=== PATIENT | female | born 1940 | race Caucasian/White ===

== ENCOUNTER 2020-12-06 14:22 | Emergency (ER) | payer MEDICARE, OTHER, SELFPAY ==
[2020-12-06 14:30] VITALS: BP 175/72; PULSE 68; RESP 12; TEMP 35.9; O2SAT 100; BMI 20.9
--- NOTE | 2020-12-06 15:15 | DI.RAD.S_ITS ---
PROCEDURE: XR LUMBAR SPINE 2-3V INDICATIONS: fall with LBP TECHNIQUE: 3 views of the lumbar spine were acquired. COMPARISON: None. FINDINGS: Bones: 5 nonrib-bearing, lumbar type vertebral bodies are seen. There is 50-60% loss of height anteriorly at the L1 level. No definite, acute features are seen. At the L5-S1 level, there is moderate to severe disc space narrowing seen. Vacuum disc phenomenon is seen at this level. The disc heights otherwise appear well-preserved. Lower lumbar spine facet arthropathy is seen. Soft tissues: Overlying bowel gas pattern is normal. No suspicious soft tissue calcifications. Atherosclerotic calcification is noted. IMPRESSION: Chronic appearing L1 anterior wedge deformity, without acute features. If there is point tenderness (or other clinical suspicion for a fracture not seen on these images) then a dedicated CT could be considered for further evaluation, if clinically appropriate. Focal L5-S1 degenerative change. Dictated by: Michael Quintana M.D. on 12/06/2020 at 15:11 Approved by: Michael Quintana M.D. on 12/06/2020 at 15:12
--- NOTE | 2020-12-06 16:50 | ED.FALL ---
HPI - Fall General Chief Complaint: Fall Stated Complaint: GLF LAST NIGHT, POSSIBLY SLEPTWALK Time Seen by Provider: 12/06/20 16:38 Source: patient Mode of arrival: Family Vehicle Limitations: no limitations History of Present Illness HPI Narrative: Patient is an 80-year-old female. Not on anticoagulation who is here for low back pain. States that last evening she got up out of bed to go use the restroom. She stated that she was unsteady and bounced off the wall and then off the door frame and then fell into a bamboo screen. She did hit the ground. She did not hit her head. There was no loss of consciousness. She stated that the screen landed on top of her. Her got up out of bed to come and check on her and he tripped and fell landed on top of her as well. The only injuries from the event that she describes her low back pain. After the [place] She had some difficulty walking afterwards and then when she woke up this morning and throughout today had continued low back pain. No urinary symptoms. No radiation to her lower extremities. Took some Tylenol prior to arrival. Related Data Home Medications Medication Instructions Recorded Confirmed estradiol [Estring] 0.0075 mg VAGINAL #0 04/10/13 tretinoin [Retin-A] #0 04/10/13 aspirin 81 mg PO QDAY #0 05/10/13 cholecalciferol (vitamin D3) 800 PO #0 05/10/13 [Vitamin D3] guaifenesin [Mucinex] 600 mg PO Q12H #0 08/04/16 Previous Rx's Medication Instructions Recorded tramadol 50 mg PO TID PRN #10 tab 12/06/20 Allergies Allergy/AdvReac Type Severity Reaction Status Date / Time fluticasone Allergy Severe Hives Verified 12/06/20 16:59 [From Advair Diskus] montelukast Allergy Severe Unconscious Verified 12/06/20 16:59 salmeterol Allergy Severe Hives Verified 12/06/20 16:59 [From Advair Diskus] azelastine [From ASTEPRO] Allergy Mild INTENSE Verified 12/06/20 16:59 SNEEZING clarithromycin Allergy Mild NAUSEA, Verified 12/06/20 16:59 [CLARITHROMYCIN] OTHER WORLDLY clindamycin [CLINDAMYCIN] Allergy Mild NAUSEA Verified 12/06/20 16:59 codeine [CODEINE] Allergy Mild N/V Verified 12/06/20 16:59 tetracycline [TETRACYCLINE] Allergy Mild NAUSEA Verified 12/06/20 16:59 cetirizine [From ZYRTEC] Allergy Unknown Verified 12/06/20 16:59 ibuprofen [IBUPROFEN] Allergy Unknown Verified 12/06/20 16:59 Ipratropium Analogues Allergy Unknown Verified 12/06/20 16:59 [IPRATROPIUM ANALOGUES] levofloxacin [From LEVAQUIN] Allergy Unknown Verified 12/06/20 16:59 Quinolones [QUINOLONES] Allergy Unknown WHITE Verified 12/06/20 16:59 PATCHES THROAT & TIGHTNESS Review of Systems Constitutional Constitutional: Denies fatigue, Denies fever(s) and Denies headache(s) ENT Ears, Nose, Mouth, and Throat: Denies headache(s) Cardiovascular Cardiovascular: Denies chest pain and Denies dyspnea Respiratory Respiratory: Denies dyspnea Gastrointestinal Gastrointestinal: Denies abdominal pain Genitourinary Genitourinary: Denies dysuria Genitourinary: Denies dysuria Musculoskeletal Musculoskeletal: Reports back pain, Denies numbness, Denies radiating pain into limb and Denies stiffness Integumentary/Breasts Skin/Breast: Denies lesions and Denies rash Neurologic Neurologic: Denies behavioral changes, Denies headache(s) and Denies numbness Psychiatric Psychiatric: Denies behavioral changes Endocrine Endocrine: Denies fatigue Hematologic/Lymphatic On Anticoagulants: No Allergic/Immunologic Allergic/Immunologic: Denies urticaria Patient History Medical History Seasonal allergic rhinitis due to pollen (06/15/16) Surgical History (Updated 12/13/17 @ 06:02 by Conversion Provider) History of cataract removal with insertion of prosthetic lens Status post appendectomy Status post hysterectomy Status post knee surgery Status post knee surgery Family History (Updated 09/12/16 @ 00:00 by Conversion Provider) Sister Age: 85 Cancer Alzheimer's disease Social History Smoking Status: Never smoker Smoking Status: Never smoker Substance Use Type: does not use Exam Initial Vital Signs Initial Vital Signs: Vital Signs Temperature 96.7 F L 12/06/20 14:30 Pulse Rate 68 12/06/20 14:30 Respiratory Rate 12 12/06/20 14:30 Blood Pressure 175/72 H 12/06/20 14:30 Pulse Oximetry 100 12/06/20 14:30 Const General: cooperative, healthy appearing and comfortable Limitations: mental status not altered HENMT Head: normal to inspection and normocephalic Resp Effort & Inspection: normal respiratory effort Auscultation: clear to auscultation bilaterally Cardio Rate: regular rate Rhythm: regular rhythm GI Palpation: soft, No firm and No tender Back/Spine/Pelvis Back: No CVA tenderness Cervical Spine: No cervical spinal tenderness Thoracic/Lumbar Spine: paraspinal tenderness, No thoracic spinal tenderness and No lumbar spinal tenderness Skin Lesions: no lesions Rashes: no rashes Neuro General: patient alert, patient awake and patient oriented x3 Cognition: normal cognition Speech: speech normal Gait: normal gait Extrem General: normal to inspection and capillary refill normal Psych Appearance: grossly normal and well kempt Course Orders Ordered: ED Orders 12/06/20 15:15 XR lumbar spine 2-3V Stat Discontinued Medications Tramadol HCl (Tramadol 50 Mg Tablet) 50 mg PO NOW ONE Stop: 12/06/20 16:53 Last Admin: 12/06/20 17:01 Dose: 50 mg Documented by: PHILIP Tramadol HCl (Tramadol 50 Mg Prepack) 1 bottle MISC SEEINSTR ONE Stop: 12/06/20 17:18 Last Admin: 12/06/20 17:26 Dose: 1 bottle Documented by: PHILIP Vital Signs Vital signs: Vital Signs - 8 hr 12/06/20 14:30 12/06/20 17:33 Temperature 96.7 F L Pulse Rate 68 88 Respiratory Rate 12 Blood Pressure 175/72 H 144/78 H Pulse Oximetry 100 MDM - Fall Imaging Data Lumbar spine x-ray: Radiologist's Impression: [address] [id number] ReportSigned Patient: Gabby Duran BMR#: [id number]: [id number]:[id number]/Sex: 80 / FDate of Service: 12/06/20Loc: EDAccession Number: [id number] Procedure: XR lumbar spine 2-3V Ordering Provider: Lanker,Aaron D.O. PROCEDURE: XR LUMBAR SPINE 2-3V INDICATIONS: fall with LBP TECHNIQUE: 3 views of the lumbar spine were acquired. COMPARISON: None. FINDINGS: Bones: 5 nonrib-bearing, lumbar type vertebral bodies are seen. There is 50-60% loss of height anteriorly at the L1 level. No definite, acute features are seen. At the L5-S1 level, there is moderate to severe disc space narrowing seen. Vacuum disc phenomenon is seen at this level. The disc heights otherwise appear well-preserved. Lower lumbar spine facet arthropathy is seen. Soft tissues: Overlying bowel gas pattern is normal. No suspicious soft tissue calcifications. Atherosclerotic calcification is noted. IMPRESSION: Chronic appearing L1 anterior wedge deformity, without acute features. If there is point tenderness (or other clinical suspicion for a fracture not seen on these images) then a dedicated CT could be considered for further evaluation, if clinically appropriate. Focal L5-S1 degenerative change. Dictated by: Michael Quintana M.D. on 12/06/2020 at 15:11 Approved by: Michael Quintana M.D. on 12/06/2020 at 15:12 [facility] Narrative Medical decision making narrative: Lumbar spine x-rays are unremarkable. She is neurovascularly intact. Did appear to be a mechanical fall last evening. She is able to flex and extend at her knees and her hips without discomfort. She reports no other injuries from the event and no other injuries found on the exam. I feel that this is musculoskeletal will treated this such. She was given return precautions and follow-up instructions. He expressed understanding and agreement. Discharge Plan Departure Patient Disposition: Home Clinical Impression: Lower back pain Instructions: Low Back Pain, How to Prevent Falls Activity Restrictions/Additional Instructions: There were no fractures noted on the x-rays. You can walk when it has top her a it. It take the medication as needed. Contact your primary provider for follow-up. Return to the emergency department for any new or worsening symptoms Prescriptions: New tramadol 50 mg tablet 50 mg PO TID PRN (Reason: pain) Qty: 10 RF: 0 No Action tretinoin [Retin-A] 0.025 % cream Qty: 0 RF: 0 estradiol [Estring] 1 EACH ring 0.0075 mg Vaginal Qty: 0 RF: 0 aspirin 81 MG tablet,delayed release (DR/EC) 81 mg PO QDAY Qty: 0 RF: 0 cholecalciferol (vitamin D3) [Vitamin D3] 400 UNIT capsule 800 PO Qty: 0 RF: 0 guaifenesin [Mucinex] 600 MG tablet extended release 12hr 600 mg PO Q12H Qty: 0 RF: 0 Referrals: Sixto Alvarado MD [Primary Care Provider] -
[2020-12-06] MEDS: TRAMADOL 50 MG TABLET PO (17:01)
[2020-12-06] MEDS: TRAMADOL 50 MG PREPACK 1 BOTTLE MISC (17:26)
[2020-12-06 17:33] VITALS: BP 144/78; PULSE 88
== END 2020-12-06 17:35 | disposition home or self-care (01) ==
PROVIDERS: Emergency Provider Emergency Medicine; Family Provider Family Medicine; PCP Family Medicine
DX: M54.5 Low back pain (principal); W19.XXXA Unspecified fall, initial encounter
CPT/HCPCS: 72100; 99283